=== PATIENT | male | born 1945 | race Caucasian/White ===

== ENCOUNTER → 2019-07-04 | Outpatient (CLI) | payer MEDICARE ==
--- NOTE | 2019-07-04 18:19 | US ---
EXAMINATION TYPE: US venous doppler duplex LE RT DATE OF EXAM: 07/04/2019 6:03 PM COMPARISON: NONE CLINICAL HISTORY: RLE edema R60.9. Edema right leg x 1 day. No HX of DVT. Patient is not on blood thi nners. SIDE PERFORMED: Right TECHNIQUE: The lower extremity deep venous system is examined utilizing real time linear array sonog [place] with graded compression, doppler sonography and color-flow sonography. VESSELS IMAGED: External Iliac Vein (EIV) Common Femoral Vein Deep Femoral Vein Greater Saphenous Vein * Femoral Vein Popliteal Vein Small Saphenous Vein * Proximal Calf Veins (* superficial vessels) FINDINGS: No direct or indirect evidence of DVT in veins imaged from proximal calf veins to EIV. IMPRESSION: Negative for DVT, right lower extremity.
== END | disposition home or self-care (01) ==
LOC: RADUSMAIN 17:35
PROVIDERS: ATTEND Internal Medicine Geriatric Medicine
DX: R60.9 Edema, unspecified (principal)